=== PATIENT | male | born 1955 | race Caucasian/White ===

== ENCOUNTER 2018-03-26 10:59 | Day surgery (SDC) | payer OTHER ==
--- NOTE | 2018-03-26 07:48 | HP ---
DATE OF SURGERY: 03/26/2018 HISTORY OF PRESENT ILLNESS: The patient is a 63 year-old gentleman with prior history of B-cell lymphoma orthodoxy/neck area in the past. He also had increase of mass of the abdomen underwent biopsy to rule out lymphoma. Now in need of terminal carman IV access Port-A-Cath placement. PAST MEDICAL HISTORY: History of lymphoma in the past. PAST SURGICAL HISTORY: Knee surgery. Broken femur in the past. Right shoulder as well as some recent laparotomy for biopsy. MEDICATIONS: No medications on a regular basis. ALLERGIES: NKDA. FAMILY HISTORY: Cancer, heart disease. SOCIAL HISTORY: One pack per day smoker, denies alcohol abuse. REVIEW OF SYSTEMS: Twelve systems reviewed per admission assessment. No chest pain or palpitations other systems negative or noncontributory as above and per preadmission questionnaire. PHYSICAL EXAMINATION: GENERAL: No acute distress. HEENT: Sclerae nonicteric. NECK: No JVD. CHEST: Equal excursion, nonlabored breathing. CVS: Regular rate and rhythm. ABDOMEN: Soft. His midline incision is healing well. No peritoneal signs. EXTREMITIES: No significant edema. NEURO: Alert, oriented, moving extremities symmetrically. No gross motor deficits noted. IMPRESSION: Lymphoma. He is in need of half-way access for IV treatments. Risks and benefits explained in detail including but not limited to bleeding or infection, risk of thrombosis, pneumothorax, risk of port infection, fracture or failure possibly requiring removal or replacement, risk of hematoma or seroma formation, general risk of aches or pains, rare risk of major venous tear or injury possibly requiring other procedures. He understands and agrees to the planned procedure and will proceed with Port-A-Cath placement as an outpatient.
[~2018-03-26 10:59] MED LIST: CEFAZOLIN 2 GM-D5W BAG** 2 GM/50 ML ML IV SCH; Lactated Ringers 1,000 ML IV ONE; Lactated Ringers 1,000 ML IV SCH; XYLOCAINE 1% HCL 20 ML MDV ONE
[2018-03-26] MEDS ORDERED: SUBLIMAZE 100 MCG/2 ML IV ONE (11:00)
[2018-03-26] MEDS ORDERED: DIPRIVAN 200 MG/20 ML IV ONE (11:00)
[2018-03-26] MEDS ORDERED: Versed 2 MG/2 ML Injection IV ONE (11:00)
[2018-03-26] MEDS ORDERED: Lactated Ringers 1,000 ML IV ONE (11:06)
[2018-03-26] MEDS ORDERED: CEFAZOLIN 2 GM-D5W BAG** 2 GM/50 ML ML IV ONE (11:06)
[2018-03-26] MEDS ORDERED: Lactated Ringers 1,000 ML IV SCH (12:30)
--- NOTE | 2018-03-26 15:33 | OP ---
SURGERY DATE/TIME: 03/26/2018 1406 PREOPERATIVE DIAGNOSIS: History of lymphoma, need for continuous churn buttermaker IV access for IV treatment. POSTOPERATIVE DIAGNOSIS: History of lymphoma, need for continuous churn buttermaker IV access for IV treatment. PROCEDURE: Tunnel Port-A-Cath placement with C-arm fluoroscopy. SURGEON: Dr. Raul Andujar. ANESTHESIA: General. ESTIMATED BLOOD LOSS: Minimal. INDICATIONS: As noted above. Risks and benefits explained in detail and not limited to and consent obtained. DESCRIPTION OF PROCEDURE AND FINDINGS: The patient is taken to the operating room. General anesthesia induced. Abdomen prepped and draped in usual sterile fashion. After official time out and no disagreement with planned procedure, placed in Trendelenburg position. 1% lidocaine local infiltrated in left subclavicular area. 18 gauge cannulation needle inserted first pass. Good dark nonpulsatile venous return obtained without difficulty. Guidewire passed without difficulty confirmed down superior vena cava by C-arm fluoroscopy followed by anesthetizing the tunnel track and port pocket. A transverse incision made inferior subcu port pocket created with aid of cautery. Port secured to chest wall with Prolene suture x2. Catheter tunneled down from the cannulation stab wound down to port pocket. The dilator and break away sheath easily fed over the guidewire. Catheter fed down break away sheath. Tip pulled back in the distal superior vena cava on C-arm fluoroscopy. Catheter is cut to appropriate length, snapped on the port with the hub. The port aspirated dark, nonpulsatile venous return with ease. Flushed with heparinized saline with ease. The tip was in good location in the distal superior vena cava. Lung hawkins appeared to be up bilaterally on C-arm fluoroscopy. It was felt no further x-rays were necessary. The patient tolerated the procedure well. At this point good hemostasis noted. Subcu closed with 3-0 Vicryl. Skin closed with 4-0 Vicryl. Cannulation stab wound closed with 4-0 Vicryl. Steri-Strips and sterile dressing applied. The patient tolerated the procedure well. There were no immediate complications. Findings discussed with the family out in the waiting area. He was transferred to recovery in stable condition.
[2018-03-26 15:47] VITALS: BP 142/80; PULSE 72; O2SAT 100
--- NOTE | 2018-03-26 18:34 | XRAY ---
Exam: Fluoroscopy for venous access from 03/26/2018. Indication: Pal catheter placement. Findings: 3 seconds of fluoroscopy time was utilized. A left-sided portacatheter is seen extending into the distal SVC in satisfactory position. Impression: As above.
== END 2018-03-26 15:58 | disposition home or self-care (01) ==
LOC: SDC 10:59
PROVIDERS: ATTEND Surgery
DX: Z45.2 Encounter for adjustment and management of vascular access device (principal); Z85.72 Personal history of non-Hodgkin lymphomas
CPT/HCPCS: 77001; C1788; J0690; J1642; J2250; J2704; J3010

== ENCOUNTER 2019-01-28 08:19 | Day surgery (SDC) | payer OTHER ==
--- NOTE | 2019-01-28 07:53 | HP ---
DATE OF SURGERY: 01/28/2019 HISTORY OF PRESENT ILLNESS: The patient is a 64 year-old with some dysphagia the last several months, feels like something constricted upper esophagus and also in the lower area as well. No bloody stools. Family history lung cancer. Negative for colon cancer. He is in need of upper endoscopy with possible biopsy and dilatation given the dysphagia. He is also in need of follow up screening colonoscopy as well. His last colonoscopy was ten years ago or so ago. PAST MEDICAL HISTORY: PAST SURGICAL HISTORY: Colonoscopy several years ago. He had appendectomy in the past. He had a port placement, laparoscopy with biopsy. He had lymphoma in the past. MEDICATIONS: None. ALLERGIES: NKDA. FAMILY HISTORY: Lung cancer. SOCIAL HISTORY: One pack per day smoker, denies alcohol abuse. REVIEW OF SYSTEMS: Twelve systems reviewed. No chest pain or palpitations other systems negative or noncontributory as above and per preadmission questionnaire. PHYSICAL EXAMINATION: GENERAL: No acute distress. HEENT: Sclerae nonicteric. NECK: No JVD. CHEST: Equal excursion, nonlabored breathing. CVS: Regular rate and rhythm. ABDOMEN: Soft. No peritoneal signs. EXTREMITIES: No significant edema. NEURO: Alert, oriented, moving extremities symmetrically. No gross motor deficits noted. RECTAL: Deferred timed to endoscopy exam. IMPRESSION: Dysphagia upper and lower esophagus. Need EGD possible biopsy, possible dilatation. He is also in need of follow up screening colonoscopy as his last colonoscopy was ten years ago according to the patient. Risks and benefits explained in detail including but not limited to bleeding or infection, risk of bowel injury or perforation possibly requiring open procedure, risk of missed or nondiagnosis or incomplete exam possibly requiring barium swallow, other studies or procedures, general risk of anesthesia or sedation, risk of bowel prep, postoperative risk of nausea or cramping. He understands regarding dilatation. If dilatation accomplished there is risk of perforation possibly requiring other procedure either open or stent placement. Possibility if dilatation accomplished and does improve his swallowing he may need it repeated again down the road. He also understands the possibility that this could be more of a functional or neurologic issue rather than a mechanical narrowing and the dilatation may not improve his swallowing and he may need further medical management. He understands and agrees to the planned procedure and will proceed with EGD with possible biopsy possible dilatation as well as colonoscopy as an outpatient.
[~2019-01-28 08:19] MED LIST changes: -CEFAZOLIN 2 GM-D5W BAG** 2 GM/50 ML ML IV SCH; -XYLOCAINE 1% HCL 20 ML MDV ONE
[2019-01-28] MEDS ORDERED: DIPRIVAN 200 MG/20 ML IV ONE (08:20)
[2019-01-28] MEDS ORDERED: SUBLIMAZE 100 MCG/2 ML IV ONE (08:20)
[2019-01-28] MEDS ORDERED: Ketamine HCl 50 MG/ML IV ONE (08:20)
[2019-01-28] MEDS ORDERED: Lactated Ringers 1,000 ML IV ONE (11:29)
[2019-01-28 12:10] VITALS: PULSE 52; O2SAT 98
[2019-01-28] MEDS ORDERED: Sodium Chloride 0.9% 10 ML FLUSH Syringe PORT FLUSH PRN (12:15)
[2019-01-28 12:28] VITALS: BP 150/87
--- NOTE | 2019-01-28 15:43 | OP ---
SURGERY DATE/TIME: 01/28/2019 1045 PREOPERATIVE DIAGNOSES: 1) History of dysphagia. 2) Need for follow up screening colonoscopy. POSTOPERATIVE DIAGNOSES: 1) History of dysphagia. 2) Need for follow up screening colonoscopy. PROCEDURES: 1) EGD with dilatation and cold biopsy of raised area between the junction of first and second portion of the duodenum ( later reported he had an ulcer in this area likely this is healing area of ulcer but cold biopsy taken, good hemostasis noted). Otherwise the remainder of the proximal duodenum unremarkable. 2) Colonoscopy. SURGEON: Dr. Raul Andujar. ANESTHESIA: MAC. ESTIMATED BLOOD LOSS: Minimal. INDICATIONS: As noted above. Risks and benefits explained in detail and not limited to and consent obtained. DESCRIPTION OF PROCEDURE AND FINDINGS: The patient is taken to the operating room. MAC anesthesia introduced. After official time out and no disagreement with planned procedure, a bite block positioned. Video gastroscope passed down the esophagus through the patent pylorus to the junction of the second and third portion of the duodenum. The scope was pulled back. In the stomach there is some minimal gastritis, small petechial lesions cold biopsy taken to evaluate for Helicobacter pylori for CLOtest. On retroflex there is no evidence of any significant hiatal hernia. Gastroesophageal junction snug against the stomach. The scope straightened, pulled back and gastroesophageal junction noted about 40 cm. He had some narrowing and spasm in this area. As he was having symptoms in this area it was felt this warranted dilatation procedure. There was no evidence of any obvious mass. No signs of Tran's. No signs of any esophagitis at this point. He had been having problems swallowing since he had some chemo recently. Otherwise the scope pulled back up more proximal esophagus. Again the scope had been able to be passed through this but this area too had been narrowed and spasm and as he was having symptoms in this area it was felt it warranted dilatation. Again, the scope had been able to pass through this area down in the stomach and duodenum but given his spasm and symptoms in this area it was felt it warranted trial dilatation here as well. The scope passed back down in the stomach. A 20 balloon dilator carefully passed back into the stomach under direct vision and then pulled back, inflated to three stages. The first stage size 18, second stage size 19 for 45 seconds, final stage size 20 for 2 minutes. The balloon was then released. The balloon catheter is then carefully pulled back up to the proximal esophageal narrowing and spasm where he is having other additional symptoms. It was felt this warranted dilatation. Again, there is no mass or any other mucosal lesion biopsy but given the narrowing and spasm and he was having symptoms it was felt he warranted dilatation. The balloon catheter carefully inflated first stage size 18 for 45 seconds, size 19 for 45 seconds, size 20 balloon dilator for 2 minutes. Balloon catheter then released and withdrawn. The scope much more easily passed through these narrowed areas in the proximal esophagus and distal esophagus. Good hemostasis noted. The scope is slowly and carefully withdrawn. There were no signs of full thickness issues secondary to dilatation. Attention is then turned to colonoscopy. Digital rectal exam did not reveal any rectal masses. He did have some small internal and external hemorrhoids. Video colonoscope inserted and passed up through the tortuous sigmoid, descending, transverse and ascending colon to the cecum. Prep overall was fair. There was a little bit of liquidy stool this is suction irrigated as clear as possible. The scope is slowly and carefully withdrawn. There were no signs of any large polyps, masses or obstructing lesions. He did have small raised area versus hyperplastic versus hyperplastic lesion, versus early polyp in the transverse colon that is removed with hot biopsy forceps. He had a few diverticula in the right colon. Otherwise scope pulled back to the rectum. A couple of very small raised lesions removed with hot biopsy forceps with brief bursts of cautery. Good hemostasis noted. Otherwise there were no signs of any large polyps, masses or obstructing lesions. He had some small internal and external hemorrhoids. The scope withdrawn. The patient tolerated the procedure well. There were no immediate complications. Findings discussed with the family out in the waiting area.
== END 2019-01-28 12:33 | disposition home or self-care (01) ==
LOC: SDC 08:19
PROVIDERS: ATTEND Surgery
DX: Z12.11 Encounter for screening for malignant neoplasm of colon (principal); K22.2 Esophageal obstruction; K29.70 Gastritis, unspecified, without bleeding; K22.4 Dyskinesia of esophagus; K63.5 Polyp of colon; K62.1 Rectal polyp; K64.4 Residual hemorrhoidal skin tags; K64.8 Other hemorrhoids; K57.30 Diverticulosis of large intestine without perforation or abscess without bleeding; R13.10 Dysphagia, unspecified; Z85.72 Personal history of non-Hodgkin lymphomas; Z80.1 Family history of malignant neoplasm of trachea, bronchus and lung; F17.200 Nicotine dependence, unspecified, uncomplicated
CPT/HCPCS: 82962; 87081; C1726; J1642; J2704; J3010

== ENCOUNTER 2019-10-07 09:07 | Day surgery (SDC) | payer OTHER ==
--- NOTE | 2019-10-07 07:44 | HP ---
DATE OF SURGERY: 10/07/2019 HISTORY OF PRESENT ILLNESS: The patient is a 64 year-old with history of lymphoma in the past, had port placed for treatment and desires removal of Port-A-Cath. PAST MEDICAL HISTORY: Lymphoma. PAST SURGICAL HISTORY: Knee surgery in the past. DEXA scan in the past. Right shoulder surgery, laparotomy, biopsy with port placement in the past. Endoscopy in the past. MEDICATIONS: None currently. ALLERGIES: NKDA. FAMILY HISTORY: History of cancer and heart disease. SOCIAL HISTORY: History of smoking one pack per day in the past. Denies alcohol abuse. REVIEW OF SYSTEMS: Fourteen systems reviewed per admission assessment. No chest pain or palpitations other systems negative or noncontributory as above and per preadmission questionnaire. PHYSICAL EXAMINATION: GENERAL: No acute distress. HEENT: Sclerae nonicteric. NECK: No JVD. CHEST: Equal excursion, nonlabored breathing. CVS: Regular rate and rhythm. ABDOMEN: Soft. EXTREMITIES: No edema. NEURO: Alert, oriented, moving extremities grossly symmetrically. No gross motor deficits noted. IMPRESSION: Undesired Port-A-Cath. I feel he would benefit from removal. Risks and benefits explained in detail including but not limited to bleeding or infection, risk of hematoma or seroma formation or wound dehiscence possibly requiring packing. General risk of anesthesia or sedation. He also understands remote possibility the catheter itself could be scarred in and may require just removing the port and tying off the catheter. Remote risk of catheter breaking, risk of deep venous thrombosis but not limited to. Consent obtained, will proceed with removal of Port-A-Cath under IV sedation.
[~2019-10-07 09:07] MED LIST changes: -Lactated Ringers 1,000 ML IV ONE; +XYLOCAINE 1% HCL 20 ML MDV ONE
[2019-10-07] MEDS ORDERED: DEMEROL 50 MG IV ONE (09:08)
[2019-10-07] MEDS ORDERED: VERSED 5 MG/5 ML IV ONE (09:08)
[2019-10-07] MEDS ORDERED: Lactated Ringers 0 ML IV ONE (09:14)
[2019-10-07 12:12] VITALS: BP 136/85; PULSE 69; O2SAT 96
[2019-10-07] MEDS ORDERED: XYLOCAINE 1% HCL 20 ML MDV ONE (13:02)
--- NOTE | 2019-10-08 11:11 | OP ---
SURGERY DATE/TIME: 10/07/2019 1030 PREOPERATIVE DIAGNOSIS: History of lymphoma. Now no longer using port, undesired Port-A-Cath desires for removal. POSTOPERATIVE DIAGNOSIS: History of lymphoma. Now no longer using port, undesired Port-A-Cath desires for removal. PROCEDURES: 1) 15 minutes IV conscious sedation monitoring and management per surgeon. 2) Removal of tunnel Port-A-Cath. SURGEON: Dr. Raul Andujar. ANESTHESIA: 1% lidocaine local. IV 50 mg Demerol, 4 mg IV Versed. ESTIMATED BLOOD LOSS: Minimal. INDICATIONS: As noted above. Risks and benefits explained in detail and not limited to and consent obtained. DESCRIPTION OF PROCEDURE AND FINDINGS: The patient is taken to the operating room. MAC anesthesia introduced. After official time out and no disagreement with planned procedure, he had been prepped and draped in usual sterile fashion. He was sedated with IV Versed and 50 mg Demerol initially and still quite with it. It was felt he needed to be a little bit more comfortable and he was given additional Versed and 50 mg Demerol. He was quite comfortable at this time. He remained hemodynamically stable on continuous pulse oximetry and blood pressure monitoring throughout the case, continuous pulse saturation, heart rate and blood pressure monitoring. Once he was in comfortable state, 1% lidocaine local was infiltrated in field pattern around the old port site. A transverse incision made. Dissection carried down. The two Prolene sutures freed. The catheter actually popped off of the port. The port was easily passed off and removed. The catheter and the hub were removed intact and passed off. Tunnel track closed with 3-0 Vicryl. Fibrous pocket closed with 3-0 Vicryl. Subcu closed with 3-0 Vicryl. Skin closed with 4-0 Vicryl. Steri-Strips and sterile dressing applied. The patient tolerated the procedure well. There were no immediate complications. Findings discussed with the family out in the waiting area.
== END 2019-10-07 12:14 | disposition home or self-care (01) ==
LOC: SDC 09:07
PROVIDERS: ATTEND Surgery
DX: Z45.2 Encounter for adjustment and management of vascular access device (principal); Z85.72 Personal history of non-Hodgkin lymphomas
CPT/HCPCS: J2175; J2250

== ENCOUNTER 2020-07-27 09:29 | Day surgery (SDC) | payer OTHER ==
--- NOTE | 2020-07-27 08:20 | HP ---
DATE OF SURGERY: 07/27/2020 HISTORY OF PRESENT ILLNESS: The patient has prior history of lymphoma, had a port removed in the past. He now has enlarging left axillary adenopathy. He is concerned about a recurrence of his lymphoma. He is in need of left axillary biopsy as well as placement of a new Port-A-Cath. PAST MEDICAL HISTORY: He had lymphoma in the past. PAST SURGICAL HISTORY: Appendectomy. Lymph node biopsy. Port placed in the past and removal. Left femur surgery in the past. MEDICATIONS: None on a regular basis. ALLERGIES: NKDA. FAMILY HISTORY: Heart disease. Cancer. SOCIAL HISTORY: One pack per day smoking, denies alcohol abuse. REVIEW OF SYSTEMS: Fourteen systems reviewed per admission assessment. No chest pain or palpitations. Other systems negative or noncontributory as above and per preadmission questionnaire. PHYSICAL EXAMINATION: GENERAL: No acute distress. HEENT: Sclerae nonicteric. NECK: No JVD. CHEST: Equal excursion, nonlabored breathing. He has got some left axillary adenopathy. CVS: Regular rate and rhythm. ABDOMEN: Soft, nondistended. EXTREMITIES: No cyanosis. NEURO: Alert, moving extremities symmetrically. No gross motor deficits noted. PSYCH: Appropriate mood and affect. IMPRESSION: Enlarging axillary adenopathy on the left. I feel he would benefit from excisional biopsy for definitive path as well as placement of new port as there is concern he has recurrence of lymphoma. Risks and benefits explained in detail regarding axillary dissection, bleeding or infection, risk of hematoma, seromal or lymphocele formation, risk of lymphedema, risks of aches and pains, burning or numbness of his extremity, axilla or shoulder, risk of weakness of the shoulder, risk of sensory or motor nerve irritation, scar formation or injury. General risk of port placement. General risk of bleeding or infection, risk of thrombosis or pneumothorax, risk of major venous tear, small risk of arterial injury, risk of port or catheter fracture or failure or infection possibly requiring removal, general risk of anesthesia, deep venous thrombosis, pulmonary embolism, pneumonia but not limited to. He understands and agrees to the planned procedure, will proceed with excisional biopsy left axillary adenopathy as well as tunnel Port-A-Cath placement with C-arm fluoroscopy.
[~2020-07-27 09:29] MED LIST changes: +Lactated Ringers 1,000 ML IV ONE; -Lactated Ringers 1,000 ML IV SCH; +Sensorcaine 0.25% 10 ML ONE; -XYLOCAINE 1% HCL 20 ML MDV ONE
[2020-07-27] MEDS ORDERED: Lactated Ringers 1,000 ML IV SCH (09:30)
[2020-07-27] MEDS ORDERED: CEFAZOLIN 2 GM-D5W BAG** 2 GM/50 ML ML IV ONE (09:35)
[2020-07-27] MEDS ORDERED: CEFAZOLIN 2 GM-D5W BAG** 2 GM/50 ML ML IV SCH (10:00)
[2020-07-27] MEDS ORDERED: Decadron 4 MG INJ ONE (11:10)
[2020-07-27] MEDS ORDERED: Zofran 4 MG/2 ML VIAL ONE (11:10)
[2020-07-27] MEDS ORDERED: DIPRIVAN 200 MG/20 ML IV ONE (11:10)
[2020-07-27] MEDS ORDERED: SUBLIMAZE 100 MCG/2 ML ONE (11:10)
[2020-07-27] MEDS ORDERED: TORAdol 30 mg Injection ONE (11:10)
[2020-07-27] MEDS ORDERED: Zemuron 100 MG/10 ML ONE (11:10)
[2020-07-27] MEDS ORDERED: Xylocaine-Mpf 2% 5 Ml Vial ONE (11:10)
[2020-07-27] MEDS ORDERED: BRIDION 200MG/2ML IV ONE (11:10)
--- NOTE | 2020-07-27 12:48 | XRAY ---
Indication: Port placement. Intraoperative fluoroscopy was provided for 2 seconds. Single digital spot image submitted for interpretation demonstrates partially visualized right Port-A-Cath with tip projecting over the SVC. Correlate with intraoperative findings/report.
[2020-07-27 13:44] VITALS: PULSE 56
[2020-07-27 14:33] VITALS: O2SAT 96
[2020-07-27 14:39] VITALS: BP 171/73
--- NOTE | 2020-07-28 09:03 | OP ---
SURGERY DATE/TIME: 07/27/2020 1111 PREOPERATIVE DIAGNOSES: 1) History of lymphoma. 2) New adenopathy left axilla, need for biopsy, need Port-A-Cath. POSTOPERATIVE DIAGNOSES: 1) History of lymphoma. 2) New adenopathy left axilla, need for biopsy, need Port-A-Cath. PROCEDURES: 1) Incisional biopsy large matted left axillary adenopathy. 2) Tunnel Port-A-Cath placement with C-arm fluoroscopy of right subclavian vein. SURGEON: Dr. Raul Andujar. ANESTHESIA: General. ESTIMATED BLOOD LOSS: Minimal. INDICATIONS: As noted above. Risks and benefits explained in detail and not limited to and consent obtained. DESCRIPTION OF PROCEDURE AND FINDINGS: Left axilla was marked preoperatively. The patient is taken to the operating room. General anesthesia induced. Neck and chest prepped and draped in usual sterile fashion. After official time out and no disagreement with planned procedure, transverse incision made left axilla and dissection carried down through the subcu fat down to the large matted adenopathy. Staying directly on this lymph node with aid of handheld LigaSure device carefully sealing the lymphatics and arterioles going into and out of this node staying directly on the capsule. This is carefully mobilized upwards. Again, it was a very large matted node. It took some time but slowly and carefully accomplished and passed off per lymph node protocol and flow cytometry was requested. There is one small, little pulsatile maintenance dispatcher controlled with 3-0 Vicryl suture ligature. Good hemostasis noted. Copious amount of irrigation irrigating clear. Appeared to have adequate hemostasis. A small piece of SURGICEL had been left on the raw surface as there was no specific vessel to ligate, cauterize or clip. Copious amount of irrigation irrigating clear. The axillary fascia reapproximated with 3-0 Vicryl. Subcu closed with 3-0 Vicryl. Skin closed with 4-0 Vicryl and some Dermabond placed on the skin. A MARCELA was then inserted through the inferior stab wound and secured with PDS suture and placed to bulb suction. Again, Dermabond placed on the skin at the end and sterile pressure dressing. The patient tolerated the procedure well. There were no immediate complications. At this time attention is then turned to Port-A-Cath placement. Gloves and instruments changed. In Trendelenburg position 18 gauge cannulation needle inserted first pass. Good dark nonpulsatile venous return. Guide wire passed without difficulty confirmed down superior vena cava by C-arm fluoroscopy. It was followed by anesthetizing the tunnel track and port pocket. Transverse incision made inferior subcu port pocket created with aid of cautery. He did have a little bit of ooze and a little maintenance dispatcher controlled with 3-0 Vicryl suture ligature. Subcu port pocket created pectoralis fascia. Port secured to the chest wall with Prolene suture x2. Catheter tunneled down from cannulation stab wound down to port pocket area. The dilator and breakaway sheath easily passed over the guide wire. Catheter fed down the breakaway sheath. The tip was in the distal superior vena cava at the top of the right atrium on C-arm fluoroscopy. Catheter cut to appropriate length snapped on the port with the hub. The port aspirated dark, nonpulsatile venous return and flushed with 1.5 cc to 2 cc of heparinized saline. Tip was in good location distal superior vena cava. Lung hawkins noted to be up bilaterally. It was felt that no further x-rays were necessary. Good hemostasis is noted. Subcu closed with 3-0 Vicryl. Skin closed with 4-0 Vicryl. Cannulation stab wound closed with 4-0 Vicryl. Steri-Strips and sterile dressing applied. The patient tolerated the procedure well. There were no immediate complications. Findings discussed with the family out in the waiting area. They were apprised that this was quite a matted node. He would have a fair amount of small ooze axilla. Drain in position.
== END 2020-07-27 14:25 | disposition home or self-care (01) ==
LOC: SDC 09:29
PROVIDERS: ATTEND Surgery
DX: C83.34 Diffuse large B-cell lymphoma, lymph nodes of axilla and upper limb (principal); Z45.2 Encounter for adjustment and management of vascular access device; Z85.72 Personal history of non-Hodgkin lymphomas
CPT/HCPCS: 36415; 36571; 38500; 77001; 88341; 88342; C1788; J0690; J1100; J1642; J1885; J2405; J2704; J3010